=== PATIENT | female | born 1990 | race Two or more races ===

== ENCOUNTER 2024-01-28 09:01 | Emergency (ER) | payer BC ==
[~2024-01-28] VITALS: Ht 172.7 cm; Wt 72.6 kg
[2024-01-28] MEDS ORDERED: BUTALB/ACETAMINOPHEN/CAFFEINE 1 TAB TABLET PO ONE (09:45)
[2024-01-28] MEDS ORDERED: FAMOtidine 10 MG/ML (4ML VIAL) IV PUSH ONE (09:45)
[2024-01-28 10:51] LABS: HEMATOCRIT 40.8 % (36.0-45.00); HEMOGLOBIN 13.5 g/dL (12.0-15.00); MEAN CELL VOLUME 84.6 fL (80.00-100.00); MEAN CORPUSCULAR HEMOGLOBIN 27.9 pg (27.00-32.0); RED BLOOD COUNT 4.82 M/uL (4.00-6.00); RED CELL DISTRIBUTION WIDTH 13.7 % (11.5-14.5)
[2024-01-28 10:53] LABS: PLATELET COUNT 102 K/uL (150-450)
== END 2024-01-28 12:59 | disposition home or self-care (01) ==
LOC: ER 09:03
PROVIDERS: General Practice
DX: A90 Dengue fever [classical dengue] (principal); R51.9 Headache, unspecified; Z20.822 Contact with and (suspected) exposure to COVID-19